=== PATIENT | female | born 2000 | race African-American/Black ===

== ENCOUNTER 2019-09-03 12:36 | Emergency (ER) | payer OTHER ==
[~2019-09-03] VITALS: Ht 160 cm; Wt 52.2 kg
[2019-09-03 13:12] VITALS: BP_SYST 112
[2019-09-03] MEDS ORDERED: ACETAMINOPHEN 325 MG TABLET PO ONE (13:15)
[2019-09-03 14:49] VITALS: BP_SYST 134
== END 2019-09-03 14:49 | disposition home or self-care (01) ==
LOC: SED 12:36
DX: S13.9XXA Sprain of joints and ligaments of unspecified parts of neck, initial encounter (principal); S09.90XA Unspecified injury of head, initial encounter; M79.644 Pain in right finger(s); V49.49XA Driver injured in collision with other motor vehicles in traffic accident, initial encounter; Y93.89 Activity, other specified; Y92.413 State road as the place of occurrence of the external cause; Y99.8 Other external cause status
CPT/HCPCS: 70450-TC; 72125-TC; 73030; 99285